=== PATIENT | male | born 1950 | race Caucasian/White ===

== ENCOUNTER 2021-03-20 15:20 | Observation (INO) ==
[2021-03-20 15:25] VITALS: BMI 30.2
--- NOTE | 2021-03-20 15:57 | DR.SOBA ---
HPI Time Seen Time Seen by Provider: 03/20/21 15:54 Primary Care Physician Primary Care Physician: DUGLAS Complaints Chief Complaint Doctors Comments: 70 y/o male presents for evaluation. He was diagnosed with Covid 1 week ago. Is having worsening dyspnea. Has a cough, productive at times. Has been having low grade fevers. Feeling increasing dyspnea, worse with exertion, better with rest. Denies nausea, vomiting, diarrhea. Did not receive Covid vaccine. Chief Complaint:: PT C/O HAVING INCREASED SHORTNESS OF BREATH AND DIZZINESS. PATIENT STATES HE WAS DIAGNOSED WITH COVID LAST FRIDAY AND REC'D THE 1 TIME INFUSION. PATIENT STATES HIS PCP WAS CONCERNED ABOUT HIS RECENT CARDIAC STENT PLACEMENT AND HIS SHORTNESS OF BREATH WITH HIS RECENT COVID DIAGNOSIS. PATIENT WAS NOT HOSPITALIZED. COVID-19 Coronavirus risk:travel/contact w/high risk person: No Has patient experienced Coronavirus symptoms: Yes Coronavirus symptoms experienced: Coughing and Shortness of Breath Reviewed Nurses Notes Reviewed: Yes Source History Provided: Patient Mode of Arrival Mode of Arrival: Ambulatory Timing Onset of Chief Complaint: 03/18/21 PMH PMH Past Medical History: Yes Past Medical History: Asthma, COPD, Diabetes and Hypertension Past Surgical History: Yes Surgical History: Angioplasty/Stents and Ortho Surgery Past Surgical History Comment: KNEE SURGERY, TOE SURGERY, Family History History of Family Medical Conditions: No Social History Does any household member use tobacco: No Alcohol Use: None Do you use any recreational Drugs:: No Lives With: Family Lives Where: Home Travel Risk Coronavirus risk:travel/contact w/high risk person: No Has patient experienced Coronavirus symptoms: Yes Coronavirus symptoms experienced: Coughing and Shortness of Breath Infectious screening In the last 2 months have you had wt loss of >10#?: NO Have you had fever, night sweats or hemotysis?: No Have you traveled outside the country in the last 6 months?: No Isolation: Droplet ROS Review of Systems Constitutional: Fever, Weakness and Fatigue Eyes: No Symptoms Reported ENTM: No Symptoms Reported Respiratoy: Moist Cough and Short of Breath Cardiovascular: No Symptoms Reported Gastrointestinal/Abdominal: No Symptoms Reported Genitourinary: No Symptoms Reported Neurological: Weakness Musculoskeletal: No Symptoms Reported Integumentary: No Symptoms Reported Hematologic/Lymphatic: No Symptoms Reported Psychiatric: No Symptoms Reported All Other Systems: Reviewed and Negative PE Vital Signs Vitals: Temperature 98.7 F Pulse Rate 57 Respiratory Rate 20 Blood Pressure 138/60 O2 Sat by Pulse Oximetry 97 General Limitations: No Limitations General Appearance: Alert and In No Apparent Distress Head Head Exam: Normal Inspection Eyes Eye exam: Normal Appearance ENT ENT Exam: Normal Exam Neck Neck Exam: Normal Inspection and Full ROM Chest Chest Inspection: Normal Inspection Respiratory Respiratory Exam: negative Accessory Muscle Use and Respiratory Distress Respiratory Exam: Bilateral: Rhonchi Cardiovascular Cardiovascular Exam: Regular Rate, Normal Rhythm and Normal Heart Sounds Abdominal Exam Abdominal Exam: Normal Inspection, Normal Bowel Sounds and Soft; negative Tenderness Extremities Extremities Exam: Normal Inspection and Full ROM; negative Tenderness and Edema Back Back Exam: Normal Inspection Neurologic Neurological Exam: Alert, Oriented X3 and CN II-XII Intact; negative Motor Sensory Deficit Psychiatric Psychiatric Exam: Normal Affect Skin Skin Exam: Warm and Dry MDM Differential Diagnosis Differential Diagnosis: CHF, COPD, Mycardial Infarction, Pneumonia and Pulmonary embolism Differential Diagnosis Comment:: Covid pneumonia COURSE Treatment Treatment: 70 y/o male ill x 1 week, + covid last week. Having worsening dyspnea. Pulse ox 93-94% at rest. W/u initiated. 1900 - CXR with covid pneumonia changes. Labs overall acceptable. Recommend admission for O2 therapy. Will treat with IV steroids, IV remdesivir. Discussed with Dr Pedersen, accepts the admission. ROR Labs Reviewed Laboratory Results Reviewed?: Yes Result Diagrams: 03/20/21 16:16 03/20/21 16:16 Laboratory: WBC 5.9 X10^3/uL (3.6-10.0) 03/20/21 16:16 RBC 3.71 X10^6/uL (4.7-6.0) L 03/20/21 16:16 Hgb 11.9 g/dL (13.5-18.0) L 03/20/21 16:16 Hct 32.7 % (42.0-54.0) L 03/20/21 16:16 MCV 88.3 fL (80.0-100.0) 03/20/21 16:16 MCH 32.0 pg (27.0-34.0) 03/20/21 16:16 MCHC 36.3 g/dL (33.0-35.0) H 03/20/21 16:16 RDW 12.9 % (11.6-16.5) 03/20/21 16:16 Plt Count 300 X10^3/uL (150.0-450.0) 03/20/21 16:16 MPV 7.6 fL (7.4-11.0) 03/20/21 16:16 Neut % (Auto) 75.7 % (42.0-75.0) H 03/20/21 16:16 Lymph % (Auto) 12.5 % (21.0-51.0) L 03/20/21 16:16 Greenlee % (Auto) 11.6 % (0.0-13.0) 03/20/21 16:16 Eos % (Auto) 0.1 % (0.9-2.9) L 03/20/21 16:16 Baso % (Auto) 0.1 % (0.2-1.0) L 03/20/21 16:16 Neut # (Auto) 4.5 x10^3/uL (2.2-4.8) 03/20/21 16:16 Lymph # (Auto) 0.7 X10^3/uL (1.3-2.9) L 03/20/21 16:16 Greenlee # (Auto) 0.7 x10^3/uL (0.3-0.8) 03/20/21 16:16 Eos # (Auto) 0.0 x10^3/uL (0.0-0.2) 03/20/21 16:16 Baso # (Auto) 0.0 X10^3/uL (0.0-0.1) 03/20/21 16:16 Absolute Nucleated RBC 0.1 /100WBC 03/20/21 16:16 PT 13.6 SECONDS (11.8-14.3) 03/20/21 16:16 INR Target Range - 03/20/21 16:16 INR 1.09 (0.8-1.3) 03/20/21 16:16 APTT 29.7 SECONDS (22.9-36.5) 03/20/21 16:16 PTT Comment - 03/20/21 16:16 D-Dimer 0.36 ug/ml (0.0-0.57) 03/20/21 16:16 Sodium 131 mmol/L (136-145) L 03/20/21 16:16 Corrected Sodium 133 mmol/L (136-145) L 03/20/21 16:16 Potassium 3.4 mmol/L (3.5-5.1) L 03/20/21 16:16 Chloride 94 mmol/L (98-107) L 03/20/21 16:16 Carbon Dioxide 26.8 mmol/L (21-32) 03/20/21 16:16 BUN 21 mg/dL (7-18) H 03/20/21 16:16 Creatinine 1.40 mg/dL (0.70-1.30) H 03/20/21 16:16 Est GFR (MDRD) Af Amer > 60 (>60) 03/20/21 16:16 Est GFR (MDRD) Non-Af 53 (>60) L 03/20/21 16:16 Glucose 164 mg/dL (65-99) H 03/20/21 16:16 Calcium 8.6 mg/dL (8.5-10.1) 03/20/21 16:16 Corrected Calcium 9.6 mg/dL (8.5-10.1) 03/20/21 16:16 Total Bilirubin 0.60 mg/dL (0.2-1.0) 03/20/21 16:16 AST 34 Units/L (15-37) 03/20/21 16:16 ALT 34 Units/L (12-78) 03/20/21 16:16 Alkaline Phosphatase 68 Units/L (46-116) 03/20/21 16:16 Creatine Kinase 162 Units/L (39-308) 03/20/21 16:16 CK-MB (CK-2) 2.6 ng/mL (0-4.0) 03/20/21 16:16 CK/CKMB % Calc 1.6 % (<4) 03/20/21 16:16 Troponin I < 0.02 ng/mL (0-1.5) 03/20/21 16:16 B-Natriuretic Peptide 173 pg/mL (0-79) H 03/20/21 16:16 Total Protein 6.4 g/dL (6.4-8.2) 03/20/21 16:16 Albumin 2.8 g/dL (3.4-5.0) L 03/20/21 16:16 Globulin 3.6 g/dL (2.5-4.5) 03/20/21 16:16 Albumin/Globulin Ratio 0.8 Ratio (1.1-2.1) L 03/20/21 16:16 SARS CoV-2 RNA Rapid CHRISS Positive (NEGATIVE) A 03/20/21 18:59 Other Results Comments: + mild hyponatremia, labs otherwise overall acceptable. XRAY XRAY Interpreted by: Both X-ray Results: + bilateral infiltrates c/w viral pneumonia EKG [place]: Normal Rhythm: NSR ST: Nonsp Opioid Opioid Risk Tool Age (Ryan box if 16-45): No History of Preadolescent Sexual Abuse: No Total: 0 Total Score Risk Category: Low Risk Copyright: Dylan CARLIN predicting aberrant behaviors Diagnosis Discharge Problem: Pneumonia due to COVID-19 virus, Hypoxia
[2021-03-20 16:38] LABS: BASOPHILS % (AUTO) 0.1 % (0.2-1.0); EOSINOPHILS % (AUTO) 0.1 % (0.9-2.9); HEMATOCRIT 32.7 % (42.0-54.0); HEMOGLOBIN 11.9 g/dL (13.5-18.0); LYMPHOCYTES # (AUTO) 0.7 X10^3/uL (1.3-2.9); LYMPHOCYTES % (AUTO) 12.5 % (21.0-51.0); MEAN CORPUSCULAR HGB CONC 36.3 g/dL (33.0-35.0); MEAN CORPUSCULAR VOLUME 88.3 fL (80.0-100.0); MEAN PLATELET VOLUME 7.6 fL (7.4-11.0); MONOCYTES # (AUTO) 0.7 x10^3/uL (0.3-0.8); MONOCYTES % (AUTO) 11.6 % (0.0-13.0); NEUTROPHILS # (AUTO) 4.5 x10^3/uL (2.2-4.8); NEUTROPHILS % (AUTO) 75.7 % (42.0-75.0); PLATELET COUNT 300 X10^3/uL (150.0-450.0); RED BLOOD COUNT 3.71 X10^6/uL (4.7-6.0); RED CELL DISTRIBUTION WIDTH 12.9 % (11.6-16.5); WHITE BLOOD COUNT 5.9 X10^3/uL (3.6-10.0)
[2021-03-20 16:58] LABS: ALANINE AMINOTRANSFERASE 34 Units/L (12-78); ALBUMIN 2.8 g/dL (3.4-5.0); ALKALINE PHOSPHATASE 68 Units/L (46-116); ASPARTATE AMINO TRANSFERASE 34 Units/L (15-37); BLOOD UREA NITROGEN 21 mg/dL (7-18); CALCIUM 8.6 mg/dL (8.5-10.1); CARBON DIOXIDE 26.8 mmol/L (21-32); CHLORIDE 94 mmol/L (98-107); CKMB % 1.6 % (<4); COR CA(FOR HYPOALB) 9.6 mg/dL (8.5-10.1); COR NA(FOR HYPERGLY) 133 mmol/L (136-145); CREATINE KINASE 162 Units/L (39-308); CREATINE KINASE MB 2.6 ng/mL (0-4.0); SODIUM 131 mmol/L (136-145); TOTAL PROTEIN 6.4 g/dL (6.4-8.2); TROPONIN I < 0.02 ng/mL (0-1.5); eGFR NON BLACK RACES 53 (>60)
--- NOTE | 2021-03-20 17:44 | RAD ---
CHEST, 1 VIEWHISTORY: Shortness of breath and dizziness. COVID-19Study: Single view of the chest.Comparison:NoneFindings:The cardiomediastinal silhouette is normal. Bilateral interstitial prominence. No focal consolidations, pleural effusions or pneumothorax. Osseous structures demonstrate no acute abnormality.IMPRESSION:1. Bilateral interstitial prominence. Findings may represent atypical infection, including viral etiologies.Electronically signed by: ERICA THAYER (Mar 20, 2021 17:43:29)
[2021-03-20] MEDS ORDERED: REMDESIVIR 200 MG in NS 250 ML IV 250 ML IV ONE (19:38)
[2021-03-20] MEDS ORDERED: NS 250 ML IV 250 ML IV ONE (20:02)
[2021-03-20] MEDS ORDERED: REMDESIVIR IV ONE (20:02)
[2021-03-20] MEDS ORDERED: ALLEGRA ONE (21:02)
[2021-03-20] MEDS ORDERED: GLUCOPHAGE ONE (21:02)
[2021-03-20] MEDS: LOPRESSOR TAB 50 MG PO SCH (21:09)
[2021-03-20] MEDS: ALLEGRA PO SCH ×2 (21:09→21:11)
[2021-03-20] MEDS: SOLU-Medrol 40 MG VIAL IVP SCH (21:10)
[2021-03-20] MEDS: GLUCOPHAGE PO SCH (21:10)
[2021-03-20] MEDS: CRESTOR TAB 10 MG PO SCH (21:10)
[2021-03-20] MEDS ORDERED: NovoLIN R (or HumuLIN R) ONE (21:23)
[2021-03-20] MEDS: NovoLIN R (or HumuLIN R) SUBCUT PRN (21:38)
[2021-03-20] MEDS ORDERED: VENTOLIN or PROAIR HFA IN SCH (22:00)
[2021-03-21 04:56] LABS: BASOPHILS % (AUTO) 0.2 % (0.2-1.0); HEMATOCRIT 34.8 % (42.0-54.0); HEMOGLOBIN 12.5 g/dL (13.5-18.0); LYMPHOCYTES # (AUTO) 0.7 X10^3/uL (1.3-2.9); LYMPHOCYTES % (AUTO) 13.5 % (21.0-51.0); MEAN CORPUSCULAR HEMOGLOBIN 31.7 pg (27.0-34.0); MEAN CORPUSCULAR HGB CONC 35.9 g/dL (33.0-35.0); MEAN CORPUSCULAR VOLUME 88.2 fL (80.0-100.0); MEAN PLATELET VOLUME 7.7 fL (7.4-11.0); MONOCYTES # (AUTO) 0.5 x10^3/uL (0.3-0.8); MONOCYTES % (AUTO) 9.5 % (0.0-13.0); NEUTROPHILS # (AUTO) 4.2 x10^3/uL (2.2-4.8); NEUTROPHILS % (AUTO) 76.8 % (42.0-75.0); PLATELET COUNT 310 X10^3/uL (150.0-450.0); RED BLOOD COUNT 3.94 X10^6/uL (4.7-6.0); RED CELL DISTRIBUTION WIDTH 12.7 % (11.6-16.5); WHITE BLOOD COUNT 5.5 X10^3/uL (3.6-10.0)
[2021-03-21 05:21] LABS: ALANINE AMINOTRANSFERASE 35 Units/L (12-78); ALBUMIN 2.9 g/dL (3.4-5.0); ALKALINE PHOSPHATASE 73 Units/L (46-116); ASPARTATE AMINO TRANSFERASE 32 Units/L (15-37); BLOOD UREA NITROGEN 16 mg/dL (7-18); CHLORIDE 93 mmol/L (98-107); COR CA(FOR HYPOALB) 9.9 mg/dL (8.5-10.1); COR NA(FOR HYPERGLY) 131 mmol/L (136-145); CREATININE 1.14 mg/dL (0.70-1.30); SODIUM 129 mmol/L (136-145); TOTAL PROTEIN 6.8 g/dL (6.4-8.2); eGFR NON BLACK RACES > 60 (>60)
[2021-03-21] MEDS ORDERED: APRESOLINE INJ 20 MG VIAL ONE (05:43)
[2021-03-21] MEDS: SOLU-Medrol 40 MG VIAL IVP SCH ×3 (06:01→21:28)
[2021-03-21] MEDS: APRESOLINE INJ 20 MG VIAL IVP PRN (06:02)
[2021-03-21] MEDS: NovoLIN R (or HumuLIN R) SUBCUT PRN ×3 (06:02→16:30)
[2021-03-21] MEDS ORDERED: MICRO K EXTEN CAP 10 MEQ PO PRN (06:04)
[2021-03-21] MEDS ORDERED: MAGNESIUM SULFATE 1 GRAM/100 mL PREMIX 1 G/100 ML BAG IV PRN (06:04)
[2021-03-21] MEDS ORDERED: K-DUR TAB 20 MEQ PO PRN (06:16)
[2021-03-21] MEDS ORDERED: K-DUR TAB 20 MEQ PO ONE (06:17)
[2021-03-21] MEDS ORDERED: GLUCOPHAGE ONE ×2 (08:25→21:21)
[2021-03-21] MEDS: BROVANA IN SCH ×2 (09:00→20:05)
[2021-03-21] MEDS: PULMICORT NEB TX 0.5 MG NEB SCH ×2 (09:00→20:05)
[2021-03-21] MEDS: LOPRESSOR TAB 50 MG PO SCH ×2 (09:20→21:31)
[2021-03-21] MEDS: GLUCOPHAGE PO SCH ×2 (09:20→21:28)
[2021-03-21] MEDS: HYDROCHLOROTHIAZIDE 25 MG TAB PO SCH (09:20)
[2021-03-21] MEDS: PLAVIX PO SCH (09:20)
[2021-03-21] MEDS: SINGULAIR TAB 10 MG PO SCH (09:20)
[2021-03-21] MEDS: CATAPRES TAB 0.1 MG PO SCH ×3 (09:45→21:31)
[2021-03-21] MEDS: PROCARDIA XL PO SCH (09:45)
[2021-03-21] MEDS: ISOSORBIDE MONONITRATE ER 24-HR PO SCH (09:45)
--- NOTE | 2021-03-21 13:20 | DR.H&P ---
H&P History & Physical for Day of: H&P Date: 03/21/21 Chief Complaint Chief Complaint: Shortness of breath Generalized weakness Allergies Allergies Allergy/AdvReac Type Severity Reaction Status Date / Time codeine AdvReac Verified 03/20/21 15:21 oyster extract AdvReac Verified 03/20/21 15:21 History of Present Illness History of Present Illness: Pt is a 70 year old male past medical history of Hypertension, DMT2, COPD, presenting with shortness of breath and generalized weakness for the past week. He reports testing positive for COVID-19 last Friday and did receive the Regen-COV antibody infusion. However, his symptoms continued to progressively worsen. In the ED, he was found to be hypoxic and started on supplemental oxygen of 2-3 L. Labs/imaging: Wbc 5.5, Hgb 12.5, 310, Na 131, K 3.4, Creatinine 1.40>1.14, Glucose 166, D-dimer 0.36, Troponin negative, BNP 173, COVID-19 positive (03/20), CXR: Bilateral interstitial prominence. Findings may represent atypical infection, including viral etiologies. Pt was started on pneumonia protocol that includes: IVF NS@KVO, Remdesivir, Solumedrol 40mg q8h, scheduled Bronchodilators, immune supporting supplements, supplemental O2, Lovenox 40mg daily, SSI, I/S, Respiratory therapy consult. Home medications were restarted. Wean/titrate supplemental oxygen as tolerated. Replete potassium per protocol. Add tussionex. Continue to monitor and follow up labs/imaging in the morning. Time spent on clinical assessment, reviewing labs and imaging, decision making, and documentation greater than 45 minutes. Past Medical History Past Medical History: Asthma, COPD, Diabetes and Hypertension Past Surgical History Surgical History: Angioplasty/Stents and Ortho Surgery Family History Family Medical History: Diabetes Mellitus, Cancer and MD Social History Does patient currently use any type of tobacco product: No Have you used tobacco products in the last 12 months: No Does any household member use tobacco: No Alcohol Use: None Drug Use: None Medications Home Medications: codeine Adverse Reaction (Verified 03/20/21 15:21) oyster extract Adverse Reaction (Verified 03/20/21 15:21) CONTINUE taking the following medications albuterol sulfate [Ventolin HFA] 1 inh INHALATION DAILY 03/20/21 [History] budesonide-formoterol [Symbicort] 2 inh INHALATION DAILY 03/20/21 [History] clonidine HCl 0.1 mg PO Q6HR 03/20/21 [History] clopidogrel [Plavix] 75 mg PO DAILY 03/20/21 [History] fexofenadine [Halina] 180 mg PO Q24H 03/20/21 [History] hydrochlorothiazide 25 mg PO QAM 03/20/21 [History] isosorbide mononitrate 120 mg PO DAILY 03/20/21 [History] metformin 1,000 mg PO BID 03/20/21 [History] metoprolol tartrate 200 mg PO Q12H 03/20/21 [History] montelukast 10 mg PO DAILY 03/20/21 [History] nifedipine 30 mg PO DAILY 03/20/21 [History] rosuvastatin [Crestor] 20 mg PO HS 03/20/21 [History] Labs Result Diagrams: 03/21/21 04:07 03/21/21 04:07 Labs: Laboratory WBC 5.5 X10^3/uL (3.6-10.0) 03/21/21 04:07 RBC 3.94 X10^6/uL (4.7-6.0) L 03/21/21 04:07 Hgb 12.5 g/dL (13.5-18.0) L 03/21/21 04:07 Hct 34.8 % (42.0-54.0) L 03/21/21 04:07 MCV 88.2 fL (80.0-100.0) 03/21/21 04:07 MCH 31.7 pg (27.0-34.0) 03/21/21 04:07 MCHC 35.9 g/dL (33.0-35.0) H 03/21/21 04:07 RDW 12.7 % (11.6-16.5) 03/21/21 04:07 Plt Count 310 X10^3/uL (150.0-450.0) 03/21/21 04:07 MPV 7.7 fL (7.4-11.0) 03/21/21 04:07 Neut % (Auto) 76.8 % (42.0-75.0) H 03/21/21 04:07 Lymph % (Auto) 13.5 % (21.0-51.0) L 03/21/21 04:07 [place]rell % (Auto) 9.5 % (0.0-13.0) 03/21/21 04:07 Eos % (Auto) 0.0 % (0.9-2.9) L 03/21/21 04:07 Baso % (Auto) 0.2 % (0.2-1.0) 03/21/21 04:07 Neut # (Auto) 4.2 x10^3/uL (2.2-4.8) 03/21/21 04:07 Lymph # (Auto) 0.7 X10^3/uL (1.3-2.9) L 03/21/21 04:07 Tyrrell # (Auto) 0.5 x10^3/uL (0.3-0.8) 03/21/21 04:07 Eos # (Auto) 0.0 x10^3/uL (0.0-0.2) 03/21/21 04:07 Baso # (Auto) 0.0 X10^3/uL (0.0-0.1) 03/21/21 04:07 Absolute Nucleated RBC 0.1 /100WBC 03/21/21 04:07 PT 13.6 SECONDS (11.8-14.3) 03/20/21 16:16 INR Target Range - 03/20/21 16:16 INR 1.09 (0.8-1.3) 03/20/21 16:16 APTT 29.7 SECONDS (22.9-36.5) 03/20/21 16:16 PTT Comment - 03/20/21 16:16 D-Dimer 0.36 ug/ml (0.0-0.57) 03/20/21 16:16 Sodium 129 mmol/L (136-145) L 03/21/21 04:07 Corrected Sodium 131 mmol/L (136-145) L 03/21/21 04:07 Potassium 3.4 mmol/L (3.5-5.1) L 03/21/21 04:07 Chloride 93 mmol/L (98-107) L 03/21/21 04:07 Carbon Dioxide 29.0 mmol/L (21-32) 03/21/21 04:07 BUN 16 mg/dL (7-18) 03/21/21 04:07 Creatinine 1.14 mg/dL (0.70-1.30) 03/21/21 04:07 Est GFR (MDRD) Af Amer > 60 (>60) 03/21/21 04:07 Est GFR (MDRD) Non-Af > 60 (>60) 03/21/21 04:07 Glucose 166 mg/dL (65-99) H 03/21/21 04:07 Calcium 9.0 mg/dL (8.5-10.1) 03/21/21 04:07 Corrected Calcium 9.9 mg/dL (8.5-10.1) 03/21/21 04:07 Magnesium 2.1 mg/dL (1.7-2.9) 03/21/21 04:07 Total Bilirubin 0.60 mg/dL (0.2-1.0) 03/21/21 04:07 AST 32 Units/L (15-37) 03/21/21 04:07 ALT 35 Units/L (12-78) 03/21/21 04:07 Alkaline Phosphatase 73 Units/L (46-116) 03/21/21 04:07 Creatine Kinase 162 Units/L (39-308) 03/20/21 16:16 CK-MB (CK-2) 2.6 ng/mL (0-4.0) 03/20/21 16:16 CK/CKMB % Calc 1.6 % (<4) 03/20/21 16:16 Troponin I < 0.02 ng/mL (0-1.5) 03/20/21 16:16 C-Reactive Protein 45.20 mg/L (0-3.0) H 03/21/21 04:07 B-Natriuretic Peptide 173 pg/mL (0-79) H 03/20/21 16:16 Total Protein 6.8 g/dL (6.4-8.2) 03/21/21 04:07 Albumin 2.9 g/dL (3.4-5.0) L 03/21/21 04:07 Globulin 3.9 g/dL (2.5-4.5) 03/21/21 04:07 Albumin/Globulin Ratio 0.7 Ratio (1.1-2.1) L 03/21/21 04:07 SARS CoV-2 RNA Rapid CHRISS Positive (NEGATIVE) A 03/20/21 18:59 Review of Systems Constitutional: Weakness Eyes: No Symptoms Reported ENT: No Symptoms Reported Respiratory: Cough and Shortness of Breath Cardiovascular: No Symptoms Reported Gastrointestinal: No Symptoms Reported Genitourinary: No Symptoms Reported Musculoskeletal: No Symptoms Reported Skin: No Symptoms Reported Neurological: No Symptoms Reported Physical Exam Vital Signs: Temperature 97.8 F Pulse Rate [Right] 55 Pulse Rate 62 Respiratory Rate 24 Blood Pressure [Left Arm] 160/74 Blood Pressure 181/78 O2 Sat by Pulse Oximetry 93 Oriented: Normal Eyes: Normal Ear: Normal Nose: Normal Throat: Normal Respiratory: Diminished Throughout, RLL Rales and LLL Rales Cardiovascular: Normal : Normal Auscultation: Bowel Sounds: Normal Palpation: Normal Tenderness: Normal Skin: Normal Musculoskeletal: Normal Psychiatric: Normal Mood Description: Calm and Appropriate Affect: Normal Speech Pattern: Clear and Appropriate Assessment/Plan (1) Pneumonia due to COVID-19 virus: Status: Acute (2) Hypoxia: Status: Acute Review H&P Reviewed: Yes Patient was examined?: Yes
[2021-03-21] MEDS: REMDESIVIR 100 MG in NS 100 ML IV + SPIKE MINIBAG* 120 ML IV SCH (14:30)
[2021-03-21] MEDS ORDERED: TESSALON PERLES PO PRN (15:41)
[2021-03-21] MEDS ORDERED: ROBITUSSIN DM PO PRN (15:41)
[2021-03-21] MEDS: NS 1,000 ML IV 1,000 ML IV SCH (16:30)
[2021-03-21] MEDS: LOVENOX INJ 40 MG SYR SC SCH (16:30)
[2021-03-21] MEDS: VITAMIN C PO SCH (16:30)
[2021-03-21] MEDS ORDERED: SNACK - Diabetic Appropriate PO SCH (20:00)
[2021-03-21] MEDS ORDERED: ALLEGRA ONE ×2 (21:21→21:33)
[2021-03-21] MEDS: CRESTOR TAB 10 MG PO SCH (21:29)
[2021-03-21] MEDS: ALLEGRA PO SCH (21:33)
[2021-03-21] MEDS ORDERED: TYLENOL 325 MG TAB PO PRN (23:11)
[2021-03-22] MEDS: CATAPRES TAB 0.1 MG PO SCH ×2 (02:40→08:39)
[2021-03-22] MEDS: APRESOLINE INJ 20 MG VIAL IVP PRN (04:10)
[2021-03-22 04:54] LABS: BASOPHILS % (AUTO) 0.1 % (0.2-1.0); HEMATOCRIT 32.4 % (42.0-54.0); HEMOGLOBIN 11.7 g/dL (13.5-18.0); LYMPHOCYTES # (AUTO) 0.9 X10^3/uL (1.3-2.9); LYMPHOCYTES % (AUTO) 9.5 % (21.0-51.0); MEAN CORPUSCULAR HEMOGLOBIN 31.9 pg (27.0-34.0); MEAN CORPUSCULAR VOLUME 88.5 fL (80.0-100.0); MEAN PLATELET VOLUME 7.9 fL (7.4-11.0); MONOCYTES # (AUTO) 0.8 x10^3/uL (0.3-0.8); MONOCYTES % (AUTO) 8.5 % (0.0-13.0); NEUTROPHILS # (AUTO) 7.3 x10^3/uL (2.2-4.8); NEUTROPHILS % (AUTO) 81.9 % (42.0-75.0); PLATELET COUNT 354 X10^3/uL (150.0-450.0); RED BLOOD COUNT 3.66 X10^6/uL (4.7-6.0); RED CELL DISTRIBUTION WIDTH 12.7 % (11.6-16.5); WHITE BLOOD COUNT 8.9 X10^3/uL (3.6-10.0)
[2021-03-22 05:04] LABS: ALANINE AMINOTRANSFERASE 33 Units/L (12-78); ALBUMIN 2.7 g/dL (3.4-5.0); ALKALINE PHOSPHATASE 69 Units/L (46-116); ASPARTATE AMINO TRANSFERASE 27 Units/L (15-37); BLOOD UREA NITROGEN 18 mg/dL (7-18); CALCIUM 8.7 mg/dL (8.5-10.1); CARBON DIOXIDE 27.1 mmol/L (21-32); CHLORIDE 95 mmol/L (98-107); COR CA(FOR HYPOALB) 9.7 mg/dL (8.5-10.1); COR NA(FOR HYPERGLY) 134 mmol/L (136-145); CREATININE 1.03 mg/dL (0.70-1.30); SODIUM 131 mmol/L (136-145); TOTAL PROTEIN 6.3 g/dL (6.4-8.2); eGFR NON BLACK RACES > 60 (>60)
[2021-03-22] MEDS: NS 1,000 ML IV 1,000 ML IV SCH (06:04)
[2021-03-22] MEDS: SOLU-Medrol 40 MG VIAL IVP SCH (06:05)
--- NOTE | 2021-03-22 06:36 | RAD ---
HISTORYCOVID+STUDYCHEST, 1 [id number]/07/2021.TECHNIQUEAP view of the chestFINDINGSCardiac and mediastinal contours are within normal limits. No significant change in bilateral airspace and interstitial opacities. No definite pleural effusion or pneumothorax. Soft tissue attenuation limits evaluation.IMPRESSIONNo significant change.Electronically signed by: Vladislav Wilson (Mar 22, 2021 06:33:36)
[2021-03-22 08:14] VITALS: BP 152/66
[2021-03-22] MEDS ORDERED: GLUCOPHAGE ONE (08:29)
[2021-03-22] MEDS: REMDESIVIR 100 MG in NS 100 ML IV + SPIKE MINIBAG* 120 ML IV SCH (08:36)
[2021-03-22] MEDS: PROCARDIA XL PO SCH (08:38)
[2021-03-22] MEDS: PLAVIX PO SCH (08:38)
[2021-03-22] MEDS: HYDROCHLOROTHIAZIDE 25 MG TAB PO SCH (08:39)
[2021-03-22] MEDS: VITAMIN C PO SCH (08:39)
[2021-03-22] MEDS: ISOSORBIDE MONONITRATE ER 24-HR PO SCH (08:40)
[2021-03-22] MEDS: LOVENOX INJ 40 MG SYR SC SCH (08:40)
[2021-03-22] MEDS: SINGULAIR TAB 10 MG PO SCH (08:40)
[2021-03-22] MEDS: NovoLIN R (or HumuLIN R) SUBCUT PRN ×2 (08:42→11:10)
[2021-03-22] MEDS: GLUCOPHAGE PO SCH (08:43)
[2021-03-22] MEDS: LOPRESSOR TAB 50 MG PO SCH (08:46)
[2021-03-22] MEDS: BROVANA IN SCH (09:20)
[2021-03-22] MEDS: PULMICORT NEB TX 0.5 MG NEB SCH (09:20)
--- NOTE | 2021-03-22 10:39 | W.DIS.FURT ---
Summary of Discharge Discharge Summary of Date Date of Exam: 03/22/21 Admission Date Date of Admission: 03/20/21 Admission Diagnosis Patient Problems (Updated 03/20/21 @ 18:35 by Rhett Ortiz) Pneumonia due to COVID-19 virus (Acute) U07.1, J12.82 Hypoxia (Acute) R09.02 Hospital Course: Pt is a 70 year old male past medical history of Hypertension, DMT2, COPD, admitted for COVID-19 pneumonia with hypoxia. He tested positive for COVID-19 last Friday and did receive the Regen-COV antibody infusion. His hospital/treatment course included: IVF NS@KVO, Remdesivir, Solumedrol 40mg q8h, scheduled Bronchodilators, immune supporting supplements, supplemental O2, Lovenox 40mg daily, SSI, I/S, Respiratory therapy consult. Pt responded well to treatments. He was initially placed on 2-4L supplemental oxygen but was able to be weaned off. On walk test morning of discharge he did not require any oxygen, did not feel short of breath, and had O2 sats >90%. Rx prednisone for 3 days to complete. Pt was discharged in stable condition, instructed to follow up with pcp in 3-5 days. Vital Signs: Vital Signs (72 hours) 03/20/21 15:21 03/20/21 16:37 03/20/21 16:45 Temperature 98.7 F Pulse Rate 98 H 59 L 58 L Pulse Rate [Right] Respiratory Rate 20 Blood Pressure 103/59 Blood Pressure [Left Arm] O2 Sat by Pulse Oximetry 94 L 95 95 03/20/21 17:00 03/20/21 17:15 03/20/21 17:30 Temperature Pulse Rate 53 L 53 L 62 Pulse Rate [Right] Respiratory Rate Blood Pressure Blood Pressure [Left Arm] O2 Sat by Pulse Oximetry 96 95 94 L 03/20/21 17:31 03/20/21 17:45 03/20/21 18:01 Temperature Pulse Rate 61 53 L 54 L Pulse Rate [Right] Respiratory Rate Blood Pressure 169/74 Blood Pressure [Left Arm] O2 Sat by Pulse Oximetry 93 L 95 91 L 03/20/21 18:15 03/20/21 18:30 03/20/21 18:45 Temperature Pulse Rate 59 L 57 L 57 L Pulse Rate [Right] Respiratory Rate Blood Pressure 138/60 Blood Pressure [Left Arm] O2 Sat by Pulse Oximetry 96 93 L 95 03/20/21 19:00 03/20/21 19:14 03/20/21 19:31 Temperature Pulse Rate 57 L 57 L Pulse Rate [Right] Respiratory Rate Blood Pressure 169/71 Blood Pressure [Left Arm] O2 Sat by Pulse Oximetry 97 95 03/20/21 20:01 03/20/21 20:14 03/20/21 20:15 Temperature Pulse Rate 60 59 L Pulse Rate [Right] Respiratory Rate Blood Pressure 172/84 Blood Pressure [Left Arm] O2 Sat by Pulse Oximetry 92 L 93 L 03/20/21 20:25 03/21/21 00:00 03/21/21 04:00 Temperature 97.8 F 97.6 F 97.8 F Pulse Rate 67 57 L 62 Pulse Rate [Right] 55 L Respiratory Rate 16 23 24 Blood Pressure 190/88 160/74 181/79 Blood Pressure [Left Arm] 160/74 O2 Sat by Pulse Oximetry 93 L 92 L 93 L 03/21/21 05:50 03/21/21 05:55 03/21/21 06:00 Temperature Pulse Rate Pulse Rate [Right] Respiratory Rate Blood Pressure 192/82 206/90 203/88 Blood Pressure [Left Arm] O2 Sat by Pulse Oximetry 03/21/21 06:05 03/21/21 06:10 03/21/21 06:15 Temperature Pulse Rate Pulse Rate [Right] Respiratory Rate Blood Pressure 193/82 186/79 181/78 Blood Pressure [Left Arm] O2 Sat by Pulse Oximetry 03/21/21 07:00 03/21/21 08:00 03/21/21 09:00 Temperature 98.4 F Pulse Rate 73 66 66 Pulse Rate [Right] Respiratory Rate 21 23 25 H Blood Pressure 191/87 182/79 180/77 Blood Pressure [Left Arm] O2 Sat by Pulse Oximetry 95 96 96 03/21/21 10:00 03/21/21 11:00 03/21/21 12:00 Temperature 98.0 F Pulse Rate 63 54 L 58 L Pulse Rate [Right] Respiratory Rate 23 27 H 23 Blood Pressure 184/84 152/74 157/72 Blood Pressure [Left Arm] O2 Sat by Pulse Oximetry 95 95 98 03/21/21 13:00 03/21/21 14:00 03/21/21 15:00 Temperature Pulse Rate 62 60 60 Pulse Rate [Right] Respiratory Rate 23 20 25 H Blood Pressure 134/61 152/69 155/69 Blood Pressure [Left Arm] O2 Sat by Pulse Oximetry 95 92 L 96 03/21/21 16:00 03/21/21 17:00 03/21/21 18:00 Temperature 98.0 F Pulse Rate 59 L 69 63 Pulse Rate [Right] Respiratory Rate 25 H 36 H 28 H Blood Pressure 144/65 146/71 137/62 Blood Pressure [Left Arm] O2 Sat by Pulse Oximetry 94 L 93 L 93 L 03/21/21 20:00 03/21/21 20:05 03/21/21 23:47 Temperature 97.9 F Pulse Rate 70 73 Pulse Rate [Right] Respiratory Rate 20 23 Blood Pressure 157/70 Blood Pressure [Left Arm] O2 Sat by Pulse Oximetry 94 L 94 L 03/22/21 00:00 03/22/21 00:47 03/22/21 01:00 Temperature 97.8 F Pulse Rate 58 L 50 L Pulse Rate [Right] Respiratory Rate 18 20 14 Blood Pressure 173/78 168/80 Blood Pressure [Left Arm] O2 Sat by Pulse Oximetry 92 L 96 03/22/21 04:00 03/22/21 04:05 03/22/21 04:20 Temperature 97.7 F 97.7 F Pulse Rate 58 L 69 Pulse Rate [Right] Respiratory Rate 33 H 27 H Blood Pressure 203/88 188/88 129/61 Blood Pressure [Left Arm] O2 Sat by Pulse Oximetry 93 L 95 03/22/21 04:25 03/22/21 04:30 03/22/21 08:00 Temperature 98.4 F Pulse Rate 61 57 L 64 Pulse Rate [Right] Respiratory Rate 20 20 17 Blood Pressure 149/72 146/67 152/66 Blood Pressure [Left Arm] O2 Sat by Pulse Oximetry 92 L 95 03/22/21 09:20 Temperature Pulse Rate Pulse Rate [Right] Respiratory Rate Blood Pressure Blood Pressure [Left Arm] O2 Sat by Pulse Oximetry 97 Labs: Laboratory Last Values WBC 8.9 X10^3/uL (3.6-10.0) 03/22/21 04:03 RBC 3.66 X10^6/uL (4.7-6.0) L 03/22/21 04:03 Hgb 11.7 g/dL (13.5-18.0) L 03/22/21 04:03 Hct 32.4 % (42.0-54.0) L 03/22/21 04:03 MCV 88.5 fL (80.0-100.0) 03/22/21 04:03 MCH 31.9 pg (27.0-34.0) 03/22/21 04:03 MCHC 36.0 g/dL (33.0-35.0) H 03/22/21 04:03 RDW 12.7 % (11.6-16.5) 03/22/21 04:03 Plt Count 354 X10^3/uL (150.0-450.0) 03/22/21 04:03 MPV 7.9 fL (7.4-11.0) 03/22/21 04:03 Neut % (Auto) 81.9 % (42.0-75.0) H 03/22/21 04:03 Lymph % (Auto) 9.5 % (21.0-51.0) L 03/22/21 04:03 [place] % (Auto) 8.5 % (0.0-13.0) 03/22/21 04:03 Eos % (Auto) 0.0 % (0.9-2.9) L 03/22/21 04:03 Baso % (Auto) 0.1 % (0.2-1.0) L 03/22/21 04:03 Neut # (Auto) 7.3 x10^3/uL (2.2-4.8) H 03/22/21 04:03 Lymph # (Auto) 0.9 X10^3/uL (1.3-2.9) L 03/22/21 04:03 [place] # (Auto) 0.8 x10^3/uL (0.3-0.8) 03/22/21 04:03 Eos # (Auto) 0.0 x10^3/uL (0.0-0.2) 03/22/21 04:03 Baso # (Auto) 0.0 X10^3/uL (0.0-0.1) 03/22/21 04:03 Absolute Nucleated RBC 0.1 /100WBC 03/22/21 04:03 PT 13.6 SECONDS (11.8-14.3) 03/20/21 16:16 INR Target Range - 03/20/21 16:16 INR 1.09 (0.8-1.3) 03/20/21 16:16 APTT 29.7 SECONDS (22.9-36.5) 03/20/21 16:16 PTT Comment - 03/20/21 16:16 D-Dimer 0.36 ug/ml (0.0-0.57) 03/20/21 16:16 Sodium 131 mmol/L (136-145) L 03/22/21 04:03 Corrected Sodium 134 mmol/L (136-145) L 03/22/21 04:03 Potassium 3.6 mmol/L (3.5-5.1) 03/22/21 04:03 Chloride 95 mmol/L (98-107) L 03/22/21 04:03 Carbon Dioxide 27.1 mmol/L (21-32) 03/22/21 04:03 BUN 18 mg/dL (7-18) 03/22/21 04:03 Creatinine 1.03 mg/dL (0.70-1.30) 03/22/21 04:03 Est GFR (MDRD) Af Amer > 60 (>60) 03/22/21 04:03 Est GFR (MDRD) Non-Af > 60 (>60) 03/22/21 04:03 Glucose 213 mg/dL (65-99) H 03/22/21 04:03 Calcium 8.7 mg/dL (8.5-10.1) 03/22/21 04:03 Corrected Calcium 9.7 mg/dL (8.5-10.1) 03/22/21 04:03 Magnesium 2.1 mg/dL (1.7-2.9) 03/21/21 04:07 Total Bilirubin 0.50 mg/dL (0.2-1.0) 03/22/21 04:03 AST 27 Units/L (15-37) 03/22/21 04:03 ALT 33 Units/L (12-78) 03/22/21 04:03 Alkaline Phosphatase 69 Units/L (46-116) 03/22/21 04:03 Creatine Kinase 162 Units/L (39-308) 03/20/21 16:16 CK-MB (CK-2) 2.6 ng/mL (0-4.0) 03/20/21 16:16 CK/CKMB % Calc 1.6 % (<4) 03/20/21 16:16 Troponin I < 0.02 ng/mL (0-1.5) 03/20/21 16:16 C-Reactive Protein 25.60 mg/L (0-3.0) H 03/22/21 04:03 B-Natriuretic Peptide 173 pg/mL (0-79) H 03/20/21 16:16 Total Protein 6.3 g/dL (6.4-8.2) L 03/22/21 04:03 Albumin 2.7 g/dL (3.4-5.0) L 03/22/21 04:03 Globulin 3.6 g/dL (2.5-4.5) 03/22/21 04:03 Albumin/Globulin Ratio 0.8 Ratio (1.1-2.1) L 03/22/21 04:03 SARS CoV-2 RNA Rapid CHRISS Positive (NEGATIVE) A 03/20/21 18:59 Reason For Visit: Covid pneumonia, Hypoxia Discharge Date Discharge Date: 03/22/21 Discharge Diagnosis All Active Problems (Updated 03/20/21 @ 18:35 by Rhett Ortiz) Pneumonia due to COVID-19 virus (Acute) Hypoxia (Acute) Plan of Treatment: Continue with present treatment and follow up plan. Pt is to keep follow up appointment as instructed and take medications as ordered. Discharge Medications Discharge Medications: codeine Adverse Reaction (Verified 03/20/21 15:21) oyster extract Adverse Reaction (Verified 03/20/21 15:21) CONTINUE taking the following medications albuterol sulfate [Ventolin HFA] 1 inh INHALATION DAILY 03/20/21 [History] budesonide-formoterol [Symbicort] 2 inh INHALATION DAILY 03/20/21 [History] clonidine HCl 0.1 mg PO Q6HR 03/20/21 [History] clopidogrel [Plavix] 75 mg PO DAILY 03/20/21 [History] fexofenadine 180 mg PO Q24H 03/20/21 [History] hydrochlorothiazide 25 mg PO QAM 03/20/21 [History] isosorbide mononitrate 120 mg PO DAILY 03/20/21 [History] metformin 1,000 mg PO BID 03/20/21 [History] metoprolol tartrate 200 mg PO Q12H 03/20/21 [History] montelukast 10 mg PO DAILY 03/20/21 [History] nifedipine 30 mg PO DAILY 03/20/21 [History] rosuvastatin [Crestor] 20 mg PO HS 03/20/21 [History] New Prescriptions albuterol sulfate 2 puff INHALATION Q4-6H PRN 30 Days #6.7 g 03/22/21 [Rx] benzonatate 100 mg PO TID PRN 10 Days #30 cap 03/22/21 [Rx] prednisone 20 mg PO BID 3 Days #6 tab 03/22/21 [Rx] Follow up and Referral Follow Up: 1 Week Discharge Disposition Assessment: No acute distress noted at time of discharge. Discharge Disposition: Home Discharge Condition: Stable Discharge Plan Discharge Plan Hospital Course: Pt is a 70 year old male past medical history of Hypertension, DMT2, COPD, admitted for COVID-19 pneumonia with hypoxia. He tested positive for COVID-19 last Friday and did receive the Regen-COV antibody infusion. His hospital/treatment course included: IVF NS@KVO, Remdesivir, Solumedrol 40mg q8h, scheduled Bronchodilators, immune supporting supplements, supplemental O2, Lovenox 40mg daily, SSI, I/S, Respiratory therapy consult. Pt responded well to treatments. He was initially placed on 2-4L supplemental oxygen but was able to be weaned off. On walk test morning of discharge he did not require any oxygen, did not feel short of breath, and had O2 sats >90%. Rx prednisone for 3 days to complete. Pt was discharged in stable condition, instructed to follow up with pcp in 3-5 days. Patient Disposition: 01 HOME, SELF-CARE Condition: Stable Health Concerns: Post Hospitalization: new medications and changes needed to prevent readmission or further decline. Pt educated and given instructions on all concerns. Care Plan Goals: Problem: Infection Goal: Temperature within normal limits. Resolved infection. Instructions: Follow provided instructions. Follow up with primary physician as directed. Contact primary care physician or report to the closest Emergency Room if condition worsens. Plan of Treatment: Continue with present treatment and follow up plan. Pt is to keep follow up appointment as instructed and take medications as ordered. Assessment: No acute distress noted at time of discharge. Prescriptions: New benzonatate 100 mg Capsule 100 mg PO TID PRN10 Days Qty: 30 RF: 0 prednisone 20 mg tablet 20 mg PO BID 3 Days Qty: 6 RF: 0 albuterol sulfate 90 mcg/actuation HFA aerosol inhaler 2 puff inhalation Q4-6H PRN30 Days Qty: 6.7 RF: 0 Continued metoprolol tartrate 100 mg Tablet 200 mg PO Q12H RF: 0 nifedipine 30 mg Tablet Extended Release 30 mg PO DAILY RF: 0 hydrochlorothiazide 25 mg Tablet 25 mg PO QAM RF: 0 clonidine HCl 0.1 mg Tablet 0.1 mg PO Q6HR RF: 0 clopidogrel [Plavix] 75 mg Tablet 75 mg PO DAILY RF: 0 fexofenadine 180 mg Tablet 180 mg PO Q24H RF: 0 isosorbide mononitrate 120 mg Tablet Extended Release 24 Hr 120 mg PO DAILY RF: 0 metformin 1,000 mg Tablet 1,000 mg PO BID RF: 0 montelukast 10 mg Tablet 10 mg PO DAILY RF: 0 albuterol sulfate [Ventolin HFA] 90 mcg/actuation Hfa Aerosol Inhaler 1 inh INHALATION DAILY RF: 0 rosuvastatin [Crestor] 20 mg Tablet 20 mg PO HS RF: 0 budesonide-formoterol [Symbicort] 160-4.5 mcg/actuation Hfa Aerosol Inhaler 2 inh INHALATION DAILY RF: 0 Orders to Discharge Patient Discharge Orders: Discharge (Routine); Ordered 03/22/21 Ordered By: Bruce Pedersen Follow ups/Referrals Follow ups/Referrals: DAPHNE ARDON [Primary Care Provider] - 03/29/21 10:00 am Instructions Instructions: Hypoxia, Chronic Obstructive Pulmonary Disease, [id number], Type 2 Diabetes Mellitus, Self-Care, Adult, [id number], 10 Things You Can Do to Manage Your COVID-19 Symptoms at Home - CDC (10/13/2019), COVID-19: How to Protect Yourself and Others - CDC, Hypertension, Adult, [id number], Managing Your Hypertension, COPD and Physical Activity Stand Alone Forms: Precautions for COVID19, [facility], Patient Portal, Social Distancing
== END 2021-03-22 11:37 | disposition home or self-care (01) ==
LOC: ICU 15:20 → ER 15:20 → ICU 20:30
PROVIDERS: ADMIT Family Medicine; ATTEND Family Medicine
DX: I10 Essential (primary) hypertension; R26.89 Other abnormalities of gait and mobility; J44.9 Chronic obstructive pulmonary disease, unspecified; R42 Dizziness and giddiness; R06.02 Shortness of breath; R09.02 Hypoxemia; U07.1 COVID-19; R94.31 Abnormal electrocardiogram [ECG] [EKG]; E11.65 Type 2 diabetes mellitus with hyperglycemia; E87.1 Hypo-osmolality and hyponatremia; J12.82 Pneumonia due to coronavirus disease 2019